=== PATIENT | male | born 1945 | race Caucasian/White ===

== ENCOUNTER 2017-01-14 08:35 | Day surgery (SDC) | payer OTHER, BC ==
[2017-01-14 09:13] VITALS: BMI 22.2
[2017-01-14] MEDS ORDERED: PROPOFOL 20 ML ONE ×2 (09:17)
[2017-01-14 10:16] VITALS: TEMP 97.5
[2017-01-14 12:08] VITALS: BP 129/74; PULSE 92
== END 2017-01-14 11:20 | disposition home or self-care (01) ==
LOC: JASU-ENDO 08:35
PROVIDERS: ATTEND Internal Medicine Gastroenterology
PROC: 0DJD8ZZ Inspection of Lower Intestinal Tract, Via Natural or Artificial Opening Endoscopic (ICD-10-PCS; principal; 2017-01-14 09:30)
DX: Z12.11 Encounter for screening for malignant neoplasm of colon (principal); K57.30 Diverticulosis of large intestine without perforation or abscess without bleeding; K64.8 Other hemorrhoids; K50.90 Crohn's disease, unspecified, without complications